=== PATIENT | female | born 1965 | race Caucasian/White ===

== ENCOUNTER 2019-08-08 05:35 | Day surgery (SDC) ==
[2019-08-01 15:10] LABS: BASO# 0.01 X1000 (0.0-0.2); BASO% 0.2 % (0.0-0.8); EOS# 0.07 X1000 (0.0-0.7); EOS% 1.5 % (0.0-10.0); HEMATOCRIT 40.6 % (37.0-47.0); HEMOGLOBIN 13.3 g/dL (12.0-16.0); LYMPH# 2.36 X1000 (1.2-3.4); LYMPH% 49.3 % (20.5-51.1); MCH 31.8 PG (27-31); MCHC 32.8 g/dL (33-37); MCV 97.1 FL (81-99); MONO# 0.35 X1000 (0.11-0.59); MONO% 7.3 % (1.7-9.3); MPV 9.4 FL (7.4-10.4); NEUT% 41.7 % (42.2-75.2); PLT 182 X1000 (130-400); RBC 4.18 XMIL (4.2-5.4); RDW 11.7 % (11.5-14.5); WBC 4.79 X1000 (4.8-10.8)
--- NOTE | 2019-08-07 10:57 | HISTORY AND PHYSICAL ---
DATE OF SURGERY: 08/08/2018. HISTORY: The patient is a 53-year-old female who has been followed by Dr. Antonio Simmons and has been having increasing problems with symptomatic pelvic organ prolapse. She was initially evaluated by him approximately 6 months ago. The patient is noted to be a para 3-0-0-3, and has been having increasing problems with symptomatic pelvic organ prolapse. She was referred to me for further therapy. We discussed options for therapy to include pessary management, [place] tissue repair, and sacrocolpopexy. The patient is very active in her daily life and she is sexually active, and she is wishing to proceed with definitive surgical intervention. The risks and benefits of sacrocolpopexy were explained at length. 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 PAST MEDICAL HISTORY: Negative for diabetes, hypertension, or asthma. PAST SURGICAL HISTORY: Positive for a diagnostic laparoscopy with hysteroscopy, D and C, and endometrial ablation. She is noted to be a para 3-0--03, with 1 of the vaginal deliveries being a 10 pound . ALLERGIES: No known drug allergies. CURRENT MEDICATIONS: P.r.n. medications. SOCIAL HISTORY: Negative for tobacco. Occasional ETOH and negative for drugs. FAMILY HISTORY: Positive for uterine cancer in her maternal grandmother and pancreatic cancer in her father. PHYSICAL EXAMINATION: GENERAL: BMI is 22. HEENT: Normocephalic, atraumatic. PERRLA, EOMI. No thyromegaly. CV: Regular rate and rhythm without murmur, gallop, or rub. PULMONARY: Clear to auscultation and percussion. ABDOMEN: Soft. : Shows POP-Q stage III prolapse with most of this being an anterior and apical defect. The leading edge is BA at +2, C is -7, TVL is 11. She has bilateral apical detachments. NEUROLOGIC: Afocal. EXTREMITIES: Without clubbing, cyanosis, or edema. ASSESSMENT AND PLAN: Patient is admitted at this time for a robotic supracervical hysterectomy, abdominal sacrocolpopexy, mid urethral sling with Obtryx, and questionable distal posterior compartment defect repair. The risks and benefits have been discussed at length. She understands and is wishing to proceed. cc: Delio Grewal MD
[2019-08-08] MEDS ORDERED: PEPCID ONE (06:03)
[2019-08-08] MEDS ORDERED: LR 1,000 ML ONE ×2 (06:04→06:31)
[2019-08-08] MEDS ORDERED: REGLAN ONE (06:04)
[2019-08-08] MEDS ORDERED: KEFZOL 1 GM/D5W 2 GM/100 ML IVPB ONE (06:04)
[2019-08-08] MEDS ORDERED: VERSED ONE (06:18)
[2019-08-08] MEDS ORDERED: DIPRIVAN 1% ONE (06:19)
[2019-08-08] MEDS ORDERED: FENTANYL ONE (06:19)
[2019-08-08] MEDS ORDERED: QUELICIN (DOSE) ONE (06:21)
[2019-08-08] MEDS ORDERED: ZEMURON ONE (06:21)
[2019-08-08] MEDS ORDERED: XYLOCAINE-MPF 2% ONE (06:21)
[2019-08-08] MEDS ORDERED: STERILE WATER INJ. ONE (06:23)
[2019-08-08] MEDS ORDERED: NORCURON ONE ×2 (06:23→09:15)
[2019-08-08] MEDS ORDERED: ROBINUL ONE ×2 (06:23→08:47)
[2019-08-08] MEDS ORDERED: D10W 1,000 ML ONE (06:31)
[2019-08-08] MEDS ORDERED: SENSORCAINE 0.25%/EPI 1:200,000 ONE (06:31)
--- NOTE | 2019-08-08 06:50 | H&P REVIEW ---
H&P Update H&P Review: H&P was reviewed and patient was examined, No change has occurred in the patient's condition
[2019-08-08] MEDS ORDERED: ZOFRAN ONE (07:08)
[2019-08-08] MEDS ORDERED: DECADRON ONE (07:08)
[2019-08-08] MEDS ORDERED: OFIRMEV 1000 MG/ISOTONIC SOLN 1,000 MG/100 ML BOTTLE ONE (07:33)
[2019-08-08 08:15] LABS: URINE SOURCE CATH
[2019-08-08] MEDS ORDERED: NEOSTIGMINE ONE (08:47)
[2019-08-08 08:57] LABS: BILIRUBIN URINE NEGATIVE (NEGATIVE); BLOOD URINE NEGATIVE (NEGATIVE); COLOR YELLOW; GLUCOSE URINE NEGATIVE (NEGATIVE); KETONE URINE NEGATIVE (NEGATIVE); LEUKOCYTES URINE NEGATIVE (NEGATIVE); NITRITE URINE NEGATIVE (NEGATIVE); PH URINE 7.5; PROTEIN URINE NEGATIVE (NEGATIVE); SP GRAVITY URINE 1.012; TURBIDITY URINE CLEAR (CLEAR); UROBILINOGEN URINE NORMAL (NORMAL)
[2019-08-08 08:58] LABS: UR EPITHELIAL CELLS <10 /HPF (<10); URINE BACTERIA NEGATIVE /HPF; URINE RBC <10 /HPF (<10); URINE WBC <10 /HPF (<10)
[2019-08-08] MEDS ORDERED: TORADOL ONE (09:30)
[2019-08-08] MEDS ORDERED: LASIX ONE (09:30)
[2019-08-08] MEDS ORDERED: METROGEL-VAGINAL 0.75% GEL ONE (10:38)
[2019-08-08] MEDS ORDERED: ZOFRAN ODT PO PRN (10:52)
[2019-08-08] MEDS: DILAUDID ONE ×2 (10:58→11:01)
[2019-08-08] MEDS: LR 1,000 ML IV SCH ×2 (11:07→17:50)
--- NOTE | 2019-08-08 11:52 | OPERATIVE NOTE ---
PROCEDURE DATE: 08/08/2019 PREOPERATIVE DIAGNOSIS: Symptomatic pelvic organ prolapse POSTOPERATIVE DIAGNOSIS: Symptomatic pelvic organ prolapse PROCEDURE: 1. Da Epifanio supracervical hysterectomy. 2. Abdominal sacrocolpopexy. 3. Mid urethral sling with Obtryx. 4. Posterior compartment defect repair. SURGEON: Dr. Delio Grewal. TAX INTERN: Ankita Kemp MD. ESTIMATED BLOOD LOSS: 40 mL. HISTORY: The patient is a 53-year-old female with worsening symptomatic pelvic organ prolapse who wished to proceed with surgical intervention. The risks and benefits have been discussed at length. She wished to proceed to surgical intervention. OPERATIVE FINDINGS: POP-Q stage III prolapse. Normal bladder after completion of the procedure with efflux of urine from both ureteral orifices. OPERATIVE PROCEDURE: Patient was taken to operating room and placed in supine position. After adequate general anesthesia was obtained, she was placed in the [facility]. Her abdomen and vagina was prepped and draped in the usual fashion. A supraumbilical incision was made and a 12 mm port and sheath were introduced through this incision in the abdominal cavity. Pelvic contents were visualized. Therefore, insufflation with CO2 to an intra-abdominal pressure of 14 was performed. Left-sided ports were placed under direct visualization and then right-sided ports were placed similarly as well. At this time, the patient was placed in deep Trendelenburg position and EEA sizers were placed within the vagina and the anus and Alcocer catheter was placed. Robot was docked in the usual fashion. Hot scissors in the right hand, bipolar PK in arm 2 and arm 3 had a single-tooth tenaculum. We began the procedure by grasping the left fallopian tube with the tenaculum, elevating it away from the ovary. We clamped, cauterized and cut the mesosalpinx region and continued in a similar fashion through the round ligament down to the cardinal ligament. We began our peritoneal dissection anteriorly and then stopped and went to the right-hand side and, in similar fashion, elevated the fallopian tube away from the ovary clamping, cauterizing and cutting the mesosalpinx, the round ligament and then the cardinal ligament. We got down to the peritoneal fold and continued with our peritoneal dissection that had been started on the contralateral side. We continued with our vesicovaginal dissection to drop the bladder well below the operative site. We then flipped the uterus anteriorly to observe the insertion of the uterosacral ligaments. We had cauterized the uterine vessels and cut through them already bilaterally and we used a single blade scissors to cut across the posterior portion of the cervical stump all the way around and then we came around on the anterior side and completed the extirpation of the corpus from the cervical stump. The corpus was then placed in the appendiceal bed. We used the single-tooth tenaculum, then grasped the cervical stump and elevated it further. We continued with our vesicovaginal dissection having approximately an 8 to 10 cm dissection anteriorly and approximately the same dissection posteriorly. We then changed out our single-tooth tenaculum to the Cardiere grasper and we used the Cardiere grasper to elevate and deviate the descending and sigmoid colon to the left away from the midline. We then identified the peritoneum over the sacral promontory. We opened this peritoneum up and continued with our peritoneal dissection down the sidewall on the right, paying attention to the location of the ureter and coming into our prior dissection from the posterior area. We then went back up to the sacral promontory and easily identified the middle sacral vessels. We cauterized these. We then trimmed our mesh in the appropriate fashion on the Lopez stand and introduced the mesh intra-abdominally. Equipment was changed out to 2 needle drivers. We started in the vesicovaginal space securing the mesh initially distally. We used a 2.0 [place]-Obi suture. Approximately 12 sutures were placed anteriorly and all the sutures were thrown with the same knot arrangement. The knot arrangement was an initial surgeon's throw and 4 half throws. This was then continued in a similar fashion in the posterior compartment with the posterior arm in the rectovaginal space. We placed approximately 8 to 10 sutures in that compartment. The third arm was then brought up to the sacral promontory and 2 sutures were placed through the mesh into the anterior longitudinal ligament. Excessive mesh was then trimmed off. We re-peritonealized using a V-Loc suture and had over 95% closure of the mesh with no mesh exposure, only very small areas could be seen. After completion of this, copious amounts of irrigation was performed. Hemostasis was observed. The corpus of the uterus was brought down in the peritoneal cavity. The robot was undocked. At this time using straight stick laparoscopy, a morcellator was introduced into our prior assistance port. We morcellated the corpus of the uterus, pending attention to the location of the blade throughout and there was no evidence of any spill of tissue whatsoever. After doing this, we then used a Flo-Jhonny closure system to close the fascia and deep layers of both the assistance port and the camera port. All equipment was removed from the patient's abdomen. Abdomen was deflated of CO2 and then nursing services closed all 5 skin incisions with 4.0 Vicryl ligature in a subcuticular fashion and surgical glue was placed for skin edges. Vaginally, we proceeded towards placement of the sling. The urethra was grasped proximally and distally with Allis clamps and approximately another 8 to 10 mL of local anesthetic was injected periurethrally for hydrodissection and pain management. Sagittal incision was made and Metzenbaum scissors were utilized to dissect up towards the ischial pubic ramus at the 10 o'clock and 2 o'clock position. Based on the bony landmarks of the ischial pubic ramus and the insertion of the adductor longus, a stab incision was initially made on the left- hand side. The halo device was introduced through this incision into the glass laminating operator's finger, which directed the needle out. The mesh was attached to it and it was retracted back through the skin. This was performed on the contralateral side in a similar fashion. Alcocer catheter had already been removed. Cystoscope was introduced. The bladder was filled to 300 mL of D10. Both ureters were effluxing. There was no abnormalities whatsoever of the bladder mucosa. The cystoscope was removed. Urethra was found to be within normal limits. Lenora clamp was placed in the mid urethral position. The tape was brought out the Lenora clamp. Blue tag was excised and the sheaths were easily removed. There was no tension on the midurethral incision whatsoever. The midurethral incision was closed a running 2.0 Vicryl ligature. Alcocer catheter was placed. We did a rectal examination at this time and she was noted to have a distal posterior compartment defect and I was concerned regarding possible digitation with defecation later on. So, a decision was made to proceed with a distal posterior compartment defect repair. We grasped the midline with Allis clamps, injected 20 mL of the same local anesthetic for hydrodissection. A sagittal incision was made and we easily dissected out laterally to the levators coming down in that area. We used 0 Vicryl ligature to plicate the levators in a running locking fashion. We trimmed off approximately 2 to 3 cm of vaginal mucosa and then closed the vaginal incision with a running 2.0 Vicryl ligature. A repeat rectal examination was performed and there was no impedance on the rectum and everything appeared to be within normal limits. A vaginal pack was placed. Sponge count, instrument count and needle count was correct x3. The patient was taken out of low adjustable stirrups, awakened and taken to the recovery room with vital signs stable. cc: Delio Grewal MD
[2019-08-08] MEDS: PERIDEX MT SCH ×2 (14:21→22:11)
[2019-08-08] MEDS: COLACE PO SCH ×2 (14:21→22:11)
[2019-08-08] MEDS: TORADOL IV SCH ×2 (14:30→22:11)
[2019-08-08] MEDS: NORCO-5 PO PRN (17:50)
[2019-08-09] MEDS: LR 1,000 ML IV SCH ×2 (01:52→08:06)
[2019-08-09] MEDS: TORADOL IV SCH ×2 (02:24→08:05)
[2019-08-09] MEDS: NORCO-5 PO PRN (05:17)
--- NOTE | 2019-08-09 07:05 | DISCHARGE SUMMARY ---
ADMISSION DATE: 08/08/2019 DISCHARGE DATE: 08/09/2019 PRINCIPAL DIAGNOSIS: Pelvic organ prolapse. PROCEDURE: 1. Robotic abdominal sacrocolpopexy, mid urethral sling with Obtryx. 2. Supracervical hysterectomy. HISTORY: The patient is a 53-year-old female been having increasing problems with symptomatic pelvic organ prolapse. She was admitted for surgical intervention. HOSPITAL COURSE: Patient underwent the above-stated procedure. Blood loss at that time was approximately 40 mL. Postoperative course has been uncomplicated. She is currently undergoing voiding trial and will be discharged home with instructions for followup in 3 weeks. DISCHARGE INSTRUCTIONS: Disney, Colace and Toradol. She was instructed on regular diet and decreased activity. cc: Delio Grewal MD MTDD
[2019-08-09] MEDS: COLACE PO SCH (08:04)
[2019-08-09] MEDS: PERIDEX MT SCH (08:04)
[2019-08-09 11:32] VITALS: BP 127/65
== END 2019-08-09 14:04 | disposition home or self-care (01) ==
LOC: OPS 05:35 → PAT 05:35 → 4N 05:35 → OPS 08-09 14:04
PROVIDERS: ATTEND Obstetrics & Gynecology